=== PATIENT | female | born 2000 ===

== ENCOUNTER 2022-10-28 08:24 | Outpatient (CLI) | payer OTHER | END 2022-10-28 10:15 | disposition home or self-care (01) | LOC: PRENATAL 08:24 | PROVIDERS: ATTEND Obstetrics & Gynecology Maternal & Fetal Medicine | DX: O35.9XX0 Maternal care for (suspected) fetal abnormality and damage, unspecified, not applicable or unspecified (principal); O35.3XX0 Maternal care for (suspected) damage to fetus from viral disease in mother, not applicable or unspecified; Z3A.20 20 weeks gestation of pregnancy ==

== ENCOUNTER 2023-01-24 08:34 | Outpatient (CLI) | payer OTHER | END 2023-01-24 09:44 | disposition home or self-care (01) | LOC: PRENATAL 08:34 | PROVIDERS: ATTEND Obstetrics & Gynecology Maternal & Fetal Medicine | DX: O26.849 Uterine size-date discrepancy, unspecified trimester (principal); O35.9XX0 Maternal care for (suspected) fetal abnormality and damage, unspecified, not applicable or unspecified; O36.8199 Decreased fetal movements, unspecified trimester, other fetus; Z3A.32 32 weeks gestation of pregnancy ==

== ENCOUNTER 2023-02-28 09:50 | Inpatient (IN) | payer OTHER ==
[~2023-02-28] VITALS: Ht 165.1 cm; Wt 3.2 kg
[2023-03-17] MEDS ORDERED: PRENATAL + DHA1 EAC1 PO (10:16)
[2023-03-17] MEDS ORDERED: IRON325 MG PO (10:16)
== END 2023-03-20 14:30 | disposition home or self-care (01) | DRG 788 ==
LOC: LDR 03-16 13:15 → OB/GYN 03-17 07:59 → O/R 03-17 21:28 → OB/GYN 03-18 00:19
PROVIDERS: ADMIT Student in an Organized Health Care Education/Training Program; ATTEND Student in an Organized Health Care Education/Training Program
PROC: 3E033VJ Introduction of Other Hormone into Peripheral Vein, Percutaneous Approach (ICD-10-PCS; 2023-03-17)
PROC: 3E0P7VZ Introduction of Hormone into Female Reproductive, Via Natural or Artificial Opening (ICD-10-PCS; 2023-03-17)
PROC: 4A1HXCZ Monitoring of Products of Conception, Cardiac Rate, External Approach (ICD-10-PCS; 2023-03-17)
PROC: 10D00Z1 Extraction of Products of Conception, Low, Open Approach (ICD-10-PCS; principal; 2023-03-17 20:00)
DX: O62.1 Secondary uterine inertia (principal); O99.824 Streptococcus B carrier state complicating childbirth; Z3A.40 40 weeks gestation of pregnancy; Z37.0 Single live birth; Z20.822 Contact with and (suspected) exposure to COVID-19

== ENCOUNTER 2025-09-28 10:39 | Outpatient (CLI) | payer OTHER ==
[~2025-09-28 10:39] MED LIST: IRON325 MG PO; PRENATAL + DHA1 EAC1 PO
== END 2025-09-28 10:44 | disposition home or self-care (01) ==
LOC: PRENATAL 10:39
PROVIDERS: ATTEND Obstetrics & Gynecology Maternal & Fetal Medicine
DX: O36.80X0 Pregnancy with inconclusive fetal viability, not applicable or unspecified (principal); Z36.82 Encounter for antenatal screening for nuchal translucency; Z14.8 Genetic carrier of other disease; Z3A.13 13 weeks gestation of pregnancy

== ENCOUNTER 2025-11-18 09:11 | Outpatient (CLI) | payer OTHER | END 2025-11-18 09:17 | disposition home or self-care (01) | LOC: PRENATAL 09:11 | PROVIDERS: ATTEND Obstetrics & Gynecology Maternal & Fetal Medicine | DX: O44.02 Complete placenta previa NOS or without hemorrhage, second trimester (principal); O34.219 Maternal care for unspecified type scar from previous cesarean delivery; O99.282 Endocrine, nutritional and metabolic diseases complicating pregnancy, second trimester; Z3A.20 20 weeks gestation of pregnancy ==